=== PATIENT | male | born 1970 | race Caucasian/White ===

== ENCOUNTER 2016-12-09 07:59 | Day surgery (SDC) | payer BC ==
[2016-12-09] MEDS ORDERED: LIDOCAINE 2% MDV (20MG/ML) 20ML VIAL IV ONE (13:31)
[2016-12-09] MEDS ORDERED: MIDAZOLAM HCL 2MG/2ML VIAL IV ONE (13:31)
[2016-12-09] MEDS ORDERED: PROPOFOL 10 MG/ML VIAL IV ONE (13:31)
--- NOTE | 2016-12-13 10:40 | Operative Note ---
DATE OF SURGERY: 12/09/2016 REQUESTING PHYSICIAN: Praful Mayberry DO SURGEON: Regan Duff MD POSTOPERATIVE DIAGNOSES: 1. Poor bowel preparation precludes complete examination. 2. A 1 cm ulcerated polyp in the rectum that was removed by snare cautery. 3. An 8 mm sessile polyp in the sigmoid colon that was also removed by snare cautery. OPERATION: COLONOSCOPY and exam. REASON FOR PROCEDURE: This is a 46-year-old male with history of hematochezia who presented for colonoscopy. SEDATION: Sedation as per anesthesia. Pulse oximetry was monitored throughout the duration of the procedure to maintain O2 saturation of 90% or greater. Supplemental oxygen was administered via nasal cannula. Cardiac and vital signs were monitored throughout the duration of the procedure and they were stable. PROCEDURE: Description of the procedure of colonoscopy, risks, and alternatives to the procedure including the risk of bleeding and perforation among others were explained to the patient who voiced understanding and agreed to have the procedure done. A physical examination was performed and the patient was found stable for sedation. The patient was then placed in the left lateral position and sedation was initiated. Digital rectal exam was performed and showed small external hemorrhoids with no palpable rectal masses. A lubricated Olympus PCF-180AL colonoscope was then inserted into the rectum under direct visualization and was advanced to the cecum without difficulty. The ileocecal valve and appendiceal orifice were identified and photographed. The colonic mucosa was carefully examined upon insertion of the colonoscope. There was a large amount of stool debris in the rectum and sigmoid colon that precluded further advancement of the colonoscope. In the rectum was a 1 cm ulcerated polyp that was noted and was removed by snare cautery. In the sigmoid colon was also an 8 mm sessile polyp that was noted and was removed by snare cautery. No other significant lesions were noted. The colonoscope was then withdrawn and the procedure was terminated. The patient tolerated the procedure well without any complications. The patient remained with stable vital signs and was sent to the recovery room. PLAN AND RECOMMENDATIONS: The patient is to stay on a low-acid diet and have further 2-day bowel prep and to have repeat colonoscopy sooner rather than later. Thank you for allowing me to participate in the care of this patient. Regan Duff MD CC: DO JHON Landon
== END 2016-12-09 09:36 | disposition home or self-care (01) ==
LOC: HOP 07:59
PROVIDERS: ATTEND Internal Medicine Gastroenterology
DX: D12.8 Benign neoplasm of rectum (principal); D12.5 Benign neoplasm of sigmoid colon

== ENCOUNTER 2017-01-06 07:21 | Day surgery (SDC) | payer BC ==
[2017-01-06] MEDS ORDERED: PROPOFOL 10 MG/ML VIAL IV ONE (14:00)
[2017-01-06] MEDS ORDERED: MIDAZOLAM HCL 2MG/2ML VIAL IV ONE (14:00)
[2017-01-06] MEDS ORDERED: LIDOCAINE 2% MDV (20MG/ML) 20ML VIAL IV ONE (14:00)
--- NOTE | 2017-01-10 08:40 | Operative Note ---
DATE OF SURGERY: 01/06/2017 SURGEON: Regan Duff MD OPERATION: COLONOSCOPY. INDICATIONS: This is a 46-year-old male who had colonoscopy back in November with 2 adenomatous polyps and with a poor bowel preparation. He now presents for repeat colonoscopy for completion post 2-day bowel prep. POSTOPERATIVE DIAGNOSES: 1. A 6 mm sessile polyp in the sigmoid colon that was removed by cold snare. 2. Three 2-3 mm sessile polyps in the rectum that were removed by cold biopsy forceps. ANESTHESIA: Sedation is per Anesthesia. Pulse oximetry was monitored throughout the procedure to maintain O2 saturation of 90% or greater. Supplemental oxygen was administered via nasal cannula. Cardiac and vital signs were monitored throughout the duration of the procedure, and they were stable. The procedure of colonoscopy and risks and alternatives of the procedure, including the risk of bleeding and perforation, among others, were explained to the patient who voiced understanding and agreed to have the procedure done. Physical examination was performed, and the patient was found stable for sedation. PROCEDURE: The patient was placed in the left lateral position. Sedation was initiated. A digital rectal exam was performed and showed some mild external hemorrhoids with no palpable rectal masses. An Olympus PCF-180AL colonoscope was then inserted into the rectum under direct visualization. It was advanced to the cecum without difficulty. The ileocecal valve and appendiceal orifice were identified and photographed. The colonic mucosa was carefully examined upon introduction of the colonoscope. There were no gross lesions noted. The bowel preparation was fair. The colonoscope was then withdrawn while carefully examining the colonic mucosal surfaces. The cecum, ascending colon, transverse colon, and descending colon mucosa appeared normal. In the sigmoid colon was a 6 mm sessile polyp that was noted and was removed by cold snare. The colonoscope was then withdrawn into the rectum, and upon retroflexion, three 2-3 mm sessile polyps were noted and were removed by cold biopsy forceps. Grade 2-3 internal hemorrhoids were also noted. The colonoscope was then withdrawn and the procedure was terminated. The patient tolerated the procedure well without any immediate complications. He remained with stable vital signs and was transferred to the recovery room. RECOMMENDATIONS: 1. Will refer to Dr. Vernon for hemorrhoidectomy. 2. He should have a repeat colonoscopy for surveillance in 3 years. Thank you for allowing me to participate in the care of your patient. Regan Duff MD CC: Dr. Praful FERREIRA
== END 2017-01-06 09:00 | disposition home or self-care (01) ==
LOC: HOP 07:21
PROVIDERS: ATTEND Internal Medicine Gastroenterology
DX: Z86.010 Personal history of colon polyps (principal); D12.5 Benign neoplasm of sigmoid colon; K62.1 Rectal polyp; K64.2 Third degree hemorrhoids

== ENCOUNTER 2019-05-06 19:27 | Emergency (ER) | payer BC ==
[2019-05-06] MEDS ORDERED: PROPARACAINE HCL OPTH 15ML BTL OPTH ONE (19:30)
--- NOTE | 2019-05-06 19:49 | Emergency Department Record ---
History of Present Illness - General Chief complaint: Eye Problem Stated complaint: L EYE/ POKED WITH A STICK Time Seen by Provider: 05/06/19 19:28 Source: Patient Mode of Arrival: Ambulatory Limitations: No limitations - History of Present Illness Initial comments: 48 yo male presents to ED for evaluation following injury to the elft eye that occurred approximately 90 minutes prior to arrival. Patient reports that he was [place] in [place] when he struck a branch with the lateral aspect of the left eye. Patient reports mild swelling to the white-part of the left eye, denies change in vision on examination. Patient denies use of anticoagulation medications at his baseline. MD chief complaint: Eye pain, Eye redness, Eye injury Onset/Timin -: Minutes(s) Onset Description: Sudden Location: Left eye Place: Street/outdoors If Injury: Direct trauma Severity: Mild Severity scale (1-10): 1 If Pain, Quality: Other Consistency: Constant Context: Injury Associated Symptoms: None Treatments Prior to Arrival: None - Related Data Allergies Allergy/AdvReac Type Severity Reaction Status Date / Time No Known Drug Allergies Allergy Unverified 03/20/19 18:52 Travel Screening - Travel/Exposure Within Last 30 Days Have you traveled within the last 30 days?: No - Travel Symptoms Symptom Screening: None Review of Systems Constitutional: Denies: Chills, Fever, Malaise, Night sweats Eyes: Reports: Eye pain. Denies: Eye discharge, Photophobia, Vision change ENT: Denies: Congestion, Ear pain, Epistaxis Respiratory: Denies: Cough, Dyspnea Cardiovascular: Denies: Chest pain, Dyspnea on exertion Endocrine: Denies: Fatigue, Heat or cold intolerance Gastrointestinal: Denies: Abdominal pain, Nausea, Vomiting Genitourinary: Denies: Incontinence, Retention Musculoskeletal: Denies: Arthralgia, Back pain Skin: Denies: Bruising, Change in color Neurological: Denies: Abnormal gait, Confusion, Headache, Seizure Psychiatric: Denies: Anxiety Hematological/Lymphatic: Denies: Anemia, Blood Clots Past Medical History - SOCIAL HISTORY Smoking Status: Current every day smoker Alcohol Use: Occasional Drug Use: None - RESPIRATORY Hx Respiratory Disorders: Yes Hx Pneumonia: Yes - CARDIOVASCULAR Hx Cardio Disorders: No - NEURO Hx Neuro Disorders: No - GI Hx GI Disorders: Yes Hx Rectal Bleeding: Yes Hx of Polyps: Yes - Hx Genitourinary Disorders: Yes Hx Kidney Stones: Yes - ENDOCRINE Hx Endocrine Disorders: No - MUSCULOSKELETAL Hx Musculoskeletal Disorders: No - PSYCH Hx Psych Problems: No - HEMATOLOGY/ONCOLOGY Hx Hematology/Oncology Disorders: No Family Medical History Any Significant Family History?: Yes Hx HTN: Mother Physical Exam - General General Appearance: Alert, Oriented x3, Cooperative, Mild distress Limitations: No limitations - Head Head exam: Atraumatic, Normocephalic, Normal inspection Head exam detail: negative: Abrasion, Contusion, Grijalva's sign, General tenderness, Hematoma, Laceration - Eye Eye exam: Other (Chemosis to the lateral aspect of the sclera of the left eye, subconjunctival hemorrhage present to the lateral aspect of the left eye, No FB identified on examination, abrasion to the sclera/cornea is present to the 3 o'clock position.). negative: Conjunctival injection, Periorbital swelling, Periorbital tenderness, Scleral icterus Image of Eyes: 1 - Pupil 2 - Abrasion 3 - Abrasion to the sclera present - ENT Ear exam: negative: Auricular hematoma, Auricular trauma Nasal Exam: negative: Active bleeding, Discharge, Dried blood, Foreign body Mouth exam: negative: Drooling, Laceration, Muffled voice, Tongue elevation - Neck Neck exam: Normal inspection. negative: Meningismus, Tenderness - Respiratory Respiratory exam: Normal lung sounds bilaterally. negative: Rales, Respiratory distress, Rhonchi, Stridor - Cardiovascular Cardiovascular Exam: Regular rate, Normal rhythm, Normal heart sounds - GI/Abdominal GI/Abdominal exam: Soft. negative: Rebound, Rigid, Tenderness - Rectal Rectal exam: Deferred - exam: Deferred - Extremities Extremities exam: Normal inspection. negative: Pedal edema, Tenderness - Back Back exam: Denies: CVA tenderness (R), CVA tenderness (L) - Neurological Neurological exam: Alert, Normal gait, Oriented X3 - Psychiatric Psychiatric exam: Normal affect, Normal mood - Skin Skin exam: Normal color. negative: Abrasion Type of lesion: negative: abrasion Course Vital Signs 05/06/19 19:35 Temperature 98.0 F Pulse Rate [ 104 H Left] Respiratory 16 Rate Blood Pressure 134/89 [Left] Pulse Ox 96 - Reevaluation(s) Reevaluation #1: 05/06/19 20:01 Examination appears c/w abrasion to both the cornea and sclera laterally Sub-conjunctival hemorrhage is present to the lateral left eye as well as traumatic chemosis. Will treat with gentamicin eye drops and referral to Dr. Weller for follow-up in 1-3 days as directed. Disposition Disposition: Discharge Clinical Impression: Abrasion of sclera of left eye Qualifiers: Encounter type: initial encounter Qualified Code(s): S05.8X2A - Other injuries of left eye and orbit, initial encounter Subconjunctival bleed Qualifiers: Laterality: left Qualified Code(s): H11.32 - Conjunctival hemorrhage, left eye Disposition: Home, Self-Care Condition: (2) Stable Instructions: Corneal Abrasion (ED) Additional Instructions: Return to ED if your symptoms worsen or if you have any concerns. Gentamicin eye drops as directed. Follow-up with Dr. Weller in 1-3 days as directed. Referrals: José Miguel Weller [MEDICAL DOCTOR] - Forms: Patient Portal Access Time of Disposition: 19:48 Quality - Quality Measures Quality Measures: N/A - Blood Pressure Screening Does Patient Have Any of the Following: No Blood Pressure Classification: Pre-Hypertensive BP Reading Systolic Measurement: 134 Diastolic Measurement: 89 Screening for High Blood Pressure: < Pre-Hypertensive BP, F/U Documented > [[id number]] Pre-Hypertensive Follow-up Interventions: Referral to alternative/primary care provider.
[2019-05-06] MEDS ORDERED: GENTAMICIN SULFATE 0.3% OPTH 5 ML BTL OPTH SCH (20:00)
== END 2019-05-06 20:16 | disposition home or self-care (01) ==
LOC: ER 19:27
DX: S05.02XA Injury of conjunctiva and corneal abrasion without foreign body, left eye, initial encounter (principal); S05.8X2A Other injuries of left eye and orbit, initial encounter; H11.32 Conjunctival hemorrhage, left eye; W22.8XXA Striking against or struck by other objects, initial encounter; Y93.01 Activity, walking, marching and hiking; Y92.828 Other wilderness area as the place of occurrence of the external cause; F17.210 Nicotine dependence, cigarettes, uncomplicated
CPT/HCPCS: 99283